=== PATIENT | male | born 1955 | race Caucasian/White ===

== ENCOUNTER 2016-10-22 12:42 | Inpatient (IN) | payer BC, SELFPAY ==
[2016-10-22] MEDS ORDERED: Levofloxacin/Dextrose 5%-Water 750 MG in Premix Bag 1 BAG IV ONE (13:35)
[2016-10-22] MEDS: Sodium Chloride 0.9% 10 ML Syringe FLUSH PRN ×2 (13:38→16:13)
[2016-10-22] MEDS ORDERED: Sodium Chloride 0.9% 1,000 ML IV SCH (13:45)
--- NOTE | 2016-10-22 14:53 | PCM.HP ---
H&P History of Present Illness - General Date of Service: 10/22/16 Admit Problem/Dx: Admission Diagnosis/Problem Admission Diagnosis/Problem Pneumonia Source of Information: Patient History Limitations: Reports: No Limitations - History of Present Illness Initial Comments - Free Text/Narative: This is a 61-year-old male that was admitted from the clinic because of shortness of breath. He was in his usual state of health until about 3 days ago. He started feeling insidiously unwell with cold symptoms that included cough runny nose mild sore throat and low-grade fever. Then present to the clinic today with worsening shortness of breath and chest pain on exertion. He does have a history of hypertension and COPD the previously stable he denies any previous coronary artery disease. Onset of Symptoms: Reports: Gradual Symptom Onset Date: 10/19/16 Duration of Symptoms: Reports: Getting Worse Improves with: Reports: None Worsens with: Reports: Movement Context: Reports: Activity/Exercise, Exertion - Related Data Allergies/Adverse Reactions: Allergies Allergy/AdvReac Type Severity Reaction Status Date / Time No Known Allergies Allergy Verified 10/22/16 13:23 Home Medications: Home Meds Albuterol [Proair HFA] 2 puff INH Q4H PRN 10/29/14 [History] Metoprolol Succinate [Toprol XL] 50 mg PO DAILY 10/29/14 [History] Omeprazole 20 mg PO ACBREAKFAST 10/29/14 [History] Tiotropium [Spiriva Handihaler] 1 cap INH DAILY 10/29/14 [History] traZODone 100 mg PO BEDTIME 10/29/14 [History] Morphine Sulfate [Morphine Sulfate ER] 15 mg PO DAILY 10/22/16 [History] Multivitamin [Multi-Vitamin Daily] 1 tab PO DAILY 10/22/16 [History] Ondansetron [Ondansetron ODT] 4 mg SL Q4H PRN 10/22/16 [History] amLODIPine [Norvasc] 5 mg PO DAILY 10/22/16 [History] Past Medical History Cardiovascular History: Reports: Hypertension Respiratory History: Reports: COPD Other Respiratory History: PULMONARY FIBROSIS Gastrointestinal History: Reports: Celiac Disease, GERD, Hiatal Hernia Musculoskeletal History: Reports: Back Pain, Chronic - Past Surgical History Other Respiratory Surgeries/Procedures: LEFT THORACOTOMY GI Surgical History: Reports: Appendectomy, Cholecystectomy, Jasmyne Fundoplication Social & Family History - Tobacco Use Smoking Status *Q: Former Smoker Years of Tobacco use: 20 Used Tobacco, but Quit: Yes - Alcohol Use Days Per Week of Alcohol Use: 1 - Recreational Drug Use Recreational Drug Use: No Drug Use in Last 12 Months: No H&P Review of Systems - Review of Systems: Review Of Systems: ROS reveals no pertinent complaints other than HPI. Exam - Exam Exam: See Below - Vital Signs Weight: 80.739 kg - Exam Quality Assessment: Supplemental Oxygen General: Alert, Oriented, Cooperative HEENT: PERRLA. No: Rhinitis Neck: Supple, JVD Cardiovascular: Regular Rate, Regular Rhythm. No: Irregular Rhythm, Rubs, Gallop/S4 GI/Abdominal Exam: Normal Bowel Sounds, No Distention, No Abnormal Bruit (Male) Exam: No Hernia Rectal (Males) Exam: Deferred Back Exam: Normal Inspection, Full Range of Motion, NT Extremities: Normal Inspection, Normal Range of Motion, Non-Tender, No Pedal Edema, Normal Capillary Refill, Pedal Edema Skin: Warm, Dry, Intact Neurological: Cranial Nerves Intact, Reflexes Equal Bilateral Neuro Extensive - Mental Status: Alert, Oriented x3, Normal Mood/Affect, Normal Cognition Neuro Extensive - Motor, Sensory, Reflexes: CN II-XII Intact, Normal Gait, Normal Reflexes Psychiatric: Alert, Normal Affect, Normal Mood - Patient Data Lab Results Last 24 hrs: Laboratory Results - last 24 hr 10/22/16 10/22/16 10/22/16 Range/Units 13:30 13:30 13:30 WBC 11.1 (4.5-12.0) X10-3/uL RBC 3.28 L (4.30-5.75) x10(6)uL Hgb 11.1 L D (11.5-15.5) g/dL Hct 32.2 (30.0-51.3) % MCV 98.1 H (80-96) fL MCH 33.6 (27.7-33.6) pg MCHC 34.3 (32.2-35.4) g/dL RDW 14.3 (11.5-15.5) % Plt Count 145 (125-369) X10(3)uL MPV 8.0 (7.4-10.4) fL Neut % (Auto) 84.1 H (46-82) % Lymph % (Auto) 9.1 L (13-37) % Hawkins % (Auto) 5.9 (4-12) % Eos % (Auto) 1 (1.0-5.0) % Baso % (Auto) 0 (0-2) % Neut # (Auto) 9.3 H (1.6-8.3) # Lymph # (Auto) 1.0 (0.6-5.0) # Hawkins # (Auto) 0.7 (0.0-1.3) # Eos # (Auto) 0.1 (0.0-0.8) # Baso # (Auto) 0.0 (0.0-0.2) # Sodium 136 (135-145) mmol/L Potassium 4.1 (3.5-5.3) mmol/L Chloride 105 (100-110) mmol/L Carbon Dioxide 19 L (23-29) mmol/L BUN 37 H D (8-23) mg/dL Creatinine 2.0 H* (0.6-1.3) mg/dL Est Cr Clr Drug Dosing 35.44 mL/min Estimated GFR (MDRD) 34 L (>60) BUN/Creatinine Ratio 18.5 (9-20) Glucose 138 H (80-116) mg/dL Calcium 9.8 (8.6-10.2) mg/dL Total Bilirubin 0.7 (0.1-1.3) mg/dL AST 87 H D (5-27) IU/L ALT 43 H D (14-26) IU/L Alkaline Phosphatase 34 L (56-112) IU/L Troponin I 4.42 H* (0.02-0.06) NG/ML B-Natriuretic Peptide (0-100) pg/mL Total Protein 7.4 (6.0-8.0) g/dL Albumin 4.1 (3.2-4.6) g/dL Globulin 3.3 g/dL Albumin/Globulin Ratio 1.2 10/22/16 Range/Units 13:30 WBC (4.5-12.0) X10-3/uL RBC (4.30-5.75) x10(6)uL Hgb (11.5-15.5) g/dL Hct (30.0-51.3) % MCV (80-96) fL MCH (27.7-33.6) pg MCHC (32.2-35.4) g/dL RDW (11.5-15.5) % Plt Count (125-369) X10(3)uL MPV (7.4-10.4) fL Neut % (Auto) (46-82) % Lymph % (Auto) (13-37) % Hawkins % (Auto) (4-12) % Eos % (Auto) (1.0-5.0) % Baso % (Auto) (0-2) % Neut # (Auto) (1.6-8.3) # Lymph # (Auto) (0.6-5.0) # Hawkins # (Auto) (0.0-1.3) # Eos # (Auto) (0.0-0.8) # Baso # (Auto) (0.0-0.2) # Sodium (135-145) mmol/L Potassium (3.5-5.3) mmol/L Chloride (100-110) mmol/L Carbon Dioxide (23-29) mmol/L BUN (8-23) mg/dL Creatinine (0.6-1.3) mg/dL Est Cr Clr Drug Dosing mL/min Estimated GFR (MDRD) (>60) BUN/Creatinine Ratio (9-20) Glucose (80-116) mg/dL Calcium (8.6-10.2) mg/dL Total Bilirubin (0.1-1.3) mg/dL AST (5-27) IU/L ALT (14-26) IU/L Alkaline Phosphatase (56-112) IU/L Troponin I (0.02-0.06) NG/ML B-Natriuretic Peptide 2270 H* (0-100) pg/mL Total Protein (6.0-8.0) g/dL Albumin (3.2-4.6) g/dL Globulin g/dL Albumin/Globulin Ratio Result Diagrams: 10/22/16 13:30 10/22/16 13:30 Imaging Impressions Last 24 hrs: CXR-right field infiltrate EKG INTERPRETATION Rhythm: NSR *Q Meaningful Use (ADM) - VTE *Q VTE Criteria *Q: - Stroke *Q Stroke Criteria *Q: - AMI *Q AMI Criteria *Q: - Problem List (1) CAP (community acquired pneumonia) SNOMED Code(s): 460796372 ICD Code: J18.9 - PNEUMONIA, UNSPECIFIED ORGANISM Status: Acute Current Visit: Yes (2) COPD (chronic obstructive pulmonary disease) SNOMED Code(s): 22788158 ICD Code: J44.9 - CHRONIC OBSTRUCTIVE PULMONARY DISEASE, UNSPECIFIED Status : Acute Current Visit: Yes Qualifiers: COPD type: COPD with acute exacerbation Qualified Code(s): J44.1 - Chronic obstructive pulmonary disease with (acute) exacerbation (3) HTN (hypertension) SNOMED Code(s): 31105472 ICD Code: I10 - ESSENTIAL (PRIMARY) HYPERTENSION Status: Chronic Current Visit: Yes Qualifiers: Hypertension type: essential hypertension Qualified Code(s): I10 - Essential (primary) hypertension (4) Troponin I above reference range SNOMED Code(s): 577863456 ICD Code: R74.8 - ABNORMAL LEVELS OF OTHER SERUM ENZYMES Status: Acute Current Visit: Yes (5) MAGGIE (acute kidney injury) SNOMED Code(s): 91387590 ICD Code: N17.9 - ACUTE KIDNEY FAILURE, UNSPECIFIED Status: Acute Current Visit: Yes (6) CHF (congestive heart failure) SNOMED Code(s): 27614054 ICD Code: I50.9 - HEART FAILURE, UNSPECIFIED Status: Acute Current Visit : Yes Qualifiers: Congestive heart failure type: unspecified congestive heart failure type Congestive heart failure chronicity: acute Qualified Code(s): I50.9 - Heart failure, unspecified Problem List Initiated/Reviewed/Updated: Yes Orders Last 24hrs: Active Orders 24 hr Category Date Time Status Patient Status [ADT] Routine ADT 10/22/16 12:56 Active EKG Documentation Completion [RC] ASDIRECTED Care 10/22/16 13:06 Active Oxygen Therapy [RC] PRN Care 10/22/16 12:56 Active VTE/DVT Education [RC] Per Unit Routine Care 10/22/16 12:56 Active Vital Signs [RC] Q4H Care 10/22/16 12:56 Active CULTURE BLOOD [BC] Stat Lab 10/22/16 13:30 Received Levofloxacin/Dextrose 5%-Water [Levaquin in D5W 750 MG/ Med 10/22/16 13:35 Active 150 ML] 750 mg Premix Bag 1 bag IV ONETIME Sodium Chloride 0.9% [Normal Saline] 1,000 ml Med 10/22/16 13:45 Active IV ASDIRECTED Sodium Chloride 0.9% [Saline Flush] Med 10/22/16 12:56 Active 10 ml FLUSH ASDIRECTED PRN Blood Culture x2 Reflex Set [OM.PC] Urgent Oth 10/22/16 12:56 Ordered Saline Lock Insert [OM.PC] Routine Oth 10/22/16 12:56 Ordered EKG 12 Lead [EK] Routine Ther 10/22/16 12:56 Ordered Medication Orders Levofloxacin/Dextrose 750 mg/ (Premix) 150 mls @ 100 mls/hr IV ONETIME ONE Stop: 10/22/16 15:04 Last Admin: 10/22/16 13:55 Dose: 100 mls/hr Sodium Chloride (Normal Saline) 1,000 mls @ 125 mls/hr IV ASDIRECTED DIONY Last Admin: 10/22/16 13:38 Dose: 125 mls/hr Sodium Chloride (Saline Flush) 10 ml FLUSH ASDIRECTED PRN PRN Reason: Keep Vein Open Last Admin: 10/22/16 13:38 Dose: 10 ml Assessment/Plan Comment:: I reviewed his labs above, including a high troponin and BNP. He also has a high creatinine of 2.0 from a baseline of 1.0. I called and spoke to the hospitalist in [place]. I recommended that I transfer the patient for further workup to determine the cause of his high troponin elevated BNP in the setting of a normal EKG. I give him aspirin and heparin to transfer him to [place] in stable condition by [facility] ambulance.
[2016-10-22] MEDS ORDERED: Aspirin 325 MG Tab.EC PO ONE (15:25)
[2016-10-22] MEDS ORDERED: Pneumococcal Polyvalent-23 Vaccine 0.5 ML SDV IM ONE (15:29)
[2016-10-22] MEDS ORDERED: Heparin Sodium 5,000 Units/ML Vial IVPUSH ONE (15:29)
[2016-10-22] MEDS ORDERED: Heparin Sodium/D5W 25,000 UNITS/500 ML BAG IV SCH (16:00)
--- NOTE | 2016-10-22 16:33 | DISCH ---
DATE OF TRANSFER: 10/22/2016 REASON FOR ADMISSION: Pneumonia. REASON FOR TRANSFER: 1. Community-acquired pneumonia. 2. Chronic obstructive pulmonary disease exacerbation. 3. High troponin. 4. Possible congestive heart failure or pulmonary embolus. CONSULTATIONS: I spoke with the hospitalist at [facility]. PROCEDURES: None. BRIEF HISTORY: This is a 61-year-old previously healthy male, except for COPD who presented to the clinic to see Dr. Torres today with shortness of breath and cough and chest pain on exertion. He was found to have a large infiltrate on the right side of the chest, but no elevated white cell count or fever. Initial workup revealed a high troponin of 4.4, and BNP of more than 2200. EKG was normal. He did not have any edema. I elected to transfer him for further workup in the setting of the above labs, especially with a consultation for Cardiology or to obtain a VQ scan to rule out PE. I spent less than 35 minutes in the discharge of this patient. /[id number] CHANDNI/DAVIS
[2016-10-22 18:08] VITALS: BP 110/61
== END 2016-10-22 16:55 | DRG 140 ==
LOC: FB.MS 12:55
PROVIDERS: ADMIT Family Medicine; ATTEND Family Medicine
DX: J44.0 Chronic obstructive pulmonary disease with (acute) lower respiratory infection (principal); J18.9 Pneumonia, unspecified organism; J44.1 Chronic obstructive pulmonary disease with (acute) exacerbation; I50.9 Heart failure, unspecified; R79.89 Other specified abnormal findings of blood chemistry; K21.9 Gastro-esophageal reflux disease without esophagitis; I11.0 Hypertensive heart disease with heart failure; N17.9 Acute kidney failure, unspecified
CPT/HCPCS: 36415; 80053; 83880; 84484; 85025; 87040; 93005; A9270-GY; J1644; J1956; J7040; J7050